=== PATIENT | male | born 1940 | race Caucasian/White ===

== ENCOUNTER 2018-10-28 10:40 | Day surgery (SDC) | payer MEDICARE, OTHER ==
[~2018-10-28] VITALS: Ht 182.9 cm; Wt 106.5 kg
[~2018-10-28 10:40] MED LIST: ASPI325 PO; ATEN100 PO; CALCITRATE200 MG PO; CARV25 PO; CENTRUM SILVER1 EAC2 PO; CLOP75 PO; CO Q10100 MG PO; CRESTOR; Coenzyme Q10400 MG PO; FAMO20 PO; HYDCHL25 PO; LISHYD2025 PO; Motion Sickness25 M1 PO; ROSU10TA PO; ROSUVASTATIN PO; UBID10; ZESTORETIC 20-121 EA PO
== END 2018-10-28 13:27 | disposition home or self-care (01) ==
LOC: ORSCSDS 10:40
PROVIDERS: Internal Medicine Gastroenterology
PROC: 0DBH8ZX Excision of Cecum, Via Natural or Artificial Opening Endoscopic, Diagnostic (ICD-10-PCS; principal; 2018-10-28 12:00)
PROC: 0DBK8ZX Excision of Ascending Colon, Via Natural or Artificial Opening Endoscopic, Diagnostic (ICD-10-PCS; principal; 2018-10-28 12:00)
PROC: 0DBL8ZX Excision of Transverse Colon, Via Natural or Artificial Opening Endoscopic, Diagnostic (ICD-10-PCS; principal; 2018-10-28 12:00)
PROC: 0DBN8ZX Excision of Sigmoid Colon, Via Natural or Artificial Opening Endoscopic, Diagnostic (ICD-10-PCS; principal; 2018-10-28 12:00)
DX: Z12.11 Encounter for screening for malignant neoplasm of colon (principal); D12.0 Benign neoplasm of cecum; D12.2 Benign neoplasm of ascending colon; D12.3 Benign neoplasm of transverse colon; D12.5 Benign neoplasm of sigmoid colon; K57.30 Diverticulosis of large intestine without perforation or abscess without bleeding; K64.8 Other hemorrhoids; Z86.010 Personal history of colon polyps; I10 Essential (primary) hypertension; I69.351 Hemiplegia and hemiparesis following cerebral infarction affecting right dominant side; I25.10 Atherosclerotic heart disease of native coronary artery without angina pectoris; Z79.01 Long term (current) use of anticoagulants; Z79.82 Long term (current) use of aspirin; Z79.899 Other long term (current) drug therapy; Z87.891 Personal history of nicotine dependence
CPT/HCPCS: 88305; J2704; J7120

== ENCOUNTER → 2019-04-15 | Outpatient (CLI) | payer MEDICARE, OTHER ==
[2019-04-15 14:23] LABS: Source, Urine Clean Catch
[2019-04-15 18:41] LABS: Bilirubin, Urine Neg (Neg); Blood, Urine 1+ (Neg); Glucose Qualitative, Urine Neg (Neg); Ketones, Urine Neg (Neg); Leukocyte Esterase, Urine Neg (Neg); Nitrite, Urine Neg (Neg); Protein, Urine 2+ (Neg); Specific Gravity, Urine 1.015 (1.003-1.022); Urobilinogen, Urine NORM (Normal); pH, Urine 6.5 (5.0-8.0)
[2019-04-15 18:58] LABS: Appearance, Urine Clear (Clear); Color, Urine Yellow (P-Yellow)
[2019-04-15 19:00] LABS: Bacteria Rare /hpf; Mucus Light (0-Heavy); Red Blood Cells, Urine Rare /hpf (0-2); Squamous Epithelial Cells Rare /hpf (Few); White Blood Cells, Urine Not Seen /hpf (0-5)
== END ==
LOC: LAB SHORT 14:22 → LAB 14:22 → LAB FUT 03-23 12:20
PROVIDERS: Physician Assistant
DX: R35.0 Frequency of micturition (principal)
CPT/HCPCS: 81001

== ENCOUNTER 2019-08-05 19:08 | Emergency (ER) | payer MEDICARE, OTHER ==
[~2019-08-05] VITALS: Ht 784.9 cm; Wt 107.5 kg
[2019-08-05] MEDS ORDERED: Crestor20 MG PO (19:25)
== END 2019-08-05 20:36 | disposition home or self-care (01) ==
LOC: ER 19:08
DX: R04.0 Epistaxis (principal); I10 Essential (primary) hypertension; I25.10 Atherosclerotic heart disease of native coronary artery without angina pectoris; Z79.82 Long term (current) use of aspirin; Z79.899 Other long term (current) drug therapy
CPT/HCPCS: 30903; 96374-59; 99283-25; J0360

== ENCOUNTER 2019-08-08 14:37 | Emergency (ER) | payer MEDICARE, OTHER ==
[~2019-08-08] VITALS: Ht 193 cm; Wt 104.3 kg
[~2019-08-08 14:37] MED LIST changes: +Crestor20 MG PO
== END 2019-08-08 14:53 | disposition home or self-care (01) ==
LOC: ER 14:37
DX: Z48.00 Encounter for change or removal of nonsurgical wound dressing (principal); I25.10 Atherosclerotic heart disease of native coronary artery without angina pectoris; Z79.82 Long term (current) use of aspirin; Z79.02 Long term (current) use of antithrombotics/antiplatelets; Z79.899 Other long term (current) drug therapy
CPT/HCPCS: 99282

== ENCOUNTER 2019-08-21 21:55 | Emergency (ER) | payer MEDICARE, OTHER ==
[~2019-08-21] VITALS: Ht 182.9 cm; Wt 107.5 kg
== END 2019-08-22 01:15 | disposition home or self-care (01) ==
LOC: ER 21:55
DX: R04.0 Epistaxis (principal); I25.2 Old myocardial infarction; I25.10 Atherosclerotic heart disease of native coronary artery without angina pectoris; I10 Essential (primary) hypertension; Z91.018 Allergy to other foods; Z88.5 Allergy status to narcotic agent; Z79.899 Other long term (current) drug therapy; Z79.82 Long term (current) use of aspirin; Z79.02 Long term (current) use of antithrombotics/antiplatelets; Z86.73 Personal history of transient ischemic attack (TIA), and cerebral infarction without residual deficits; Z95.5 Presence of coronary angioplasty implant and graft; Z87.891 Personal history of nicotine dependence
CPT/HCPCS: 30901; 99283-25

== ENCOUNTER 2019-08-25 10:13 | Emergency (ER) | payer MEDICARE, OTHER ==
[~2019-08-25] VITALS: Ht 182.9 cm; Wt 107.5 kg
== END 2019-08-25 10:42 | disposition home or self-care (01) ==
LOC: ER 10:13
DX: Z48.00 Encounter for change or removal of nonsurgical wound dressing (principal); J34.9 Unspecified disorder of nose and nasal sinuses; I25.2 Old myocardial infarction; I10 Essential (primary) hypertension; I25.10 Atherosclerotic heart disease of native coronary artery without angina pectoris; Z88.5 Allergy status to narcotic agent; Z91.018 Allergy to other foods; Z79.82 Long term (current) use of aspirin; Z79.899 Other long term (current) drug therapy; Z86.73 Personal history of transient ischemic attack (TIA), and cerebral infarction without residual deficits; Z87.891 Personal history of nicotine dependence
CPT/HCPCS: 99282

== ENCOUNTER 2020-04-18 06:15 | Day surgery (SDC) | payer MEDICARE, OTHER ==
[~2020-04-18] VITALS: Ht 182.9 cm; Wt 110.0 kg
[~2020-04-18 06:15] MED LIST changes: +CALCIUM 600 +1 EA11 PO; +COQ1050 MG PO; +IBUP800 PO; +MAGNESIUM TAURATE PO; +Prinivil10 MG PO
--- NOTE | 2020-04-18 06:52 | NUR ---
INTO [facility] VSS ADMISSION STARTED. History, Chart, Medications and Allergies reviewed before start of procedure.Lungs clear T/O to Auscultation. Patient confirms NPO status and agrees with scheduled surgery.
--- NOTE | 2020-04-18 10:45 | NUR ---
PT ARRIVED TO ROOM VIA OWN BED FROM PACU, A/O X 4, PLEASANT/COOPERATIVE, DENIES N/V, DENIES PAIN IN OPERATIVE HIP. POST OP VS COMMENCED AND STABLE. PT ABLE TO ROTATE CAMACHO FEET, GOOD CAPILLARY REFILL CAMACHO TOES. PT RECEIVED SECOND DOSE TXA IN PACU. PROVIDED PT WITH ORIENTATION TO ROOM, CALL LIGHT, NURSING STAFF. PROVIDED WITH PO FLUIDS.
--- NOTE | 2020-04-18 13:47 | NUR ---
OT in with pt
--- NOTE | 2020-04-18 18:08 | NUR ---
SHIFT SUMMARY: VSS, NO ACUTE CHANGES, PT WORKED WITH PT/OT THIS SHIFT, REMAINS A/O X 4, DENIES PAIN, DENIES N/V. PT HAS BEEN UP IN CHAIR SINCE OT EVAL, HAS AMBULATED IN HALLWAY, OPERATIVE SITE DRESSING REMAINS C/D/I. HAS VOIDED USING URINAL. PT CONCERNED THAT DIETARY IS AWARE OF CELERY ALLERGY. THIS RN CHECKED BOTH MEDICAL RECORD ALLERGY LIST (WHICH SHOWS CELERY ALLERGY) WELL SEND FOOD REQUEST TO DIETARY TO VERIFY THEY ARE AWARE OF ALLERGY. THIS RN NOTIFIED PT OF THESE MEASURE. PT'S DAUGHTER HAS PATRIA PT SNACKS FROM HOME, WHICH AR ESTICKERED AND IN THE REFRIGERATOR
[2020-04-19 04:28] LABS: BASOPHILS ABSOLUTE AUTO 0.01 K/mm3 (0.00-0.23); BASOPHILS PERCENT AUTO 0 % (0-2); EOSINOPHILS PERCENT AUTO 0 % (0-6); Hematocrit 29.2 % (37.0-53.0); Hemoglobin 9.6 g/dL (13.5-17.5); IMMATURE GRAN ABSOLUTE AUTO 0.05 K/mm3 (0.00-0.10); IMMATURE GRAN PERCENT AUTO 1 % (0-1); LYMPHOCYTES ABSOLUTE AUTO 0.69 K/mm3 (0.84-5.20); LYMPHOCYTES PERCENT AUTO 6 % (21-46); MONOCYTES ABSOLUTE AUTO 1.48 K/mm3 (0.16-1.47); MONOCYTES PERCENT AUTO 14 % (4-13); Mean Corpuscular HGB 29.3 pg (26.0-34.0); Mean Corpuscular HGB Conc 32.9 g/dL (31.5-36.5); Mean Corpuscular Volume 89 fL (80-100); Mean Platelet Volume 10.9 fL (9.1-12.4); NEUTROPHILS ABSOLUTE AUTO 8.65 K/mm3 (1.96-9.15); NEUTROPHILS PERCENT AUTO 80 % (41-73); Platelet Count 171 K/mm3 (150-400); RDW Coefficient Variation 13.5 % (11.7-14.2); RDW Standard Deviation 44.1 fL (35.1-46.3); Red Blood Cell Count 3.28 M/mm3 (4.30-5.90); White Blood Cell Count 10.88 K/mm3 (4.00-11.30)
[2020-04-19 04:45] LABS: Anion Gap 6 mmol/L (6-16); Blood Urea Nitrogen 22 mg/dL (8-24); Bun/Creatinine Ratio 21.6 (12.0-20.0); CO2, Blood 28 mmol/L (21-32); Calcium, Blood 7.8 mg/dL (8.5-10.1); Chloride, Blood 97 mmol/L (98-108); Creatinine, Blood 1.02 mg/dL (0.60-1.20); Glomerular Filtration Rate >60 (60-); Glucose, Blood 149 mg/dL (70-99); Magnesium, Blood 1.6 mg/dL (1.6-2.4); Potassium, Blood 4.2 mmol/L (3.5-5.5); Sodium, Blood 131 mmol/L (136-145)
--- NOTE | 2020-04-19 04:46 | NUR ---
SHIFT SUMMARY: POD 1 RIGHT TOTAL HIP REPAIR PATIENT IS ALERT AND ORIENTED X4 WHILE AWAKE. HE HAS TRISTON SLEEPING MAJORITY OF THE SHIFT BUT IS EASILY AROUSABLE. VITALS ARE WNL AND IS ON RA. PAIN IS CONTROLLED WITH IV DILAUDID, TORADOL, AND PO TYLENOL. PATIENT HAS BEEN VOIDING IN URNAL AND TOLERATING PO INTAKE. HE HAS AMBULATED TO THE BATHROOM WITH FWW AND GAIT BELT ON. HIS SURGICAL DRESSINGS X3 ON THE RIGHT HIP ARE C/D/I. HE HAS AN ALLERGY TO CELERY SO HE HAS RAMEN NOODLES IN THE ROOM WELL YOGURT IN THE FRIDGE. HE USES THE CALL LIGHT APPROPRIATELY. CALL LIGHT WITHIN REACH. THE PLAN IS TO POSSIBLY BE DISCHARGED TODAY.
--- NOTE | 2020-04-19 09:59 | NUR ---
CALLED PT'S PCP LOYDA KHAN'S OFFICE TO CONFIRM HCTZ DOSE, THEY SAID PT DOES NOT HAVE AN ACTIVE RX FOR THAT MEDICATION ANYMORE.
[2020-04-19] MEDS ORDERED: ROXICODONE5 MG PO (11:18)
[2020-04-19] MEDS ORDERED: AMOCLA875 PO (11:18)
[2020-04-19] MEDS ORDERED: PROM25 PO (11:20)
--- NOTE | 2020-04-19 11:57 | NUR ---
0830 pt declines all medications, states he will take them at home.
--- NOTE | 2020-04-19 11:59 | NUR ---
0915 per patient he no longer takes hctz as one of his medications contacted tonya naranjo who also states hctz is not on pts curent medications
== END 2020-04-19 11:50 | disposition home or self-care (01) ==
LOC: ORSCMMR 06:15 → SURS 10:39 → ORSCMMR 14:00 → SURS 04-19 11:50 → ORSCMMR 04-19 11:50
PROVIDERS: Orthopaedic Surgery
PROC: 8E0YXBZ Computer Assisted Procedure of Lower Extremity (ICD-10-PCS; principal; 2020-04-18 07:30)
PROC: 0SR90JA Replacement of Right Hip Joint with Synthetic Substitute, Uncemented, Open Approach (ICD-10-PCS; principal; 2020-04-18 07:30)
DX: M16.11 Unilateral primary osteoarthritis, right hip (principal); I10 Essential (primary) hypertension; I25.10 Atherosclerotic heart disease of native coronary artery without angina pectoris; E78.5 Hyperlipidemia, unspecified; I25.2 Old myocardial infarction; Z86.73 Personal history of transient ischemic attack (TIA), and cerebral infarction without residual deficits; Z87.891 Personal history of nicotine dependence; Z79.01 Long term (current) use of anticoagulants; Z79.899 Other long term (current) drug therapy; Z79.82 Long term (current) use of aspirin
CPT/HCPCS: 36415; 72170; 80048; 83735; 85025; 88300; 97110; 97110-CQ; 97116; 97116-CQ; 97162; 97166; 97530; 97530-CQ; 97535; A9270; C1713; C1776; J0171; J0690; J0735; J1100; J1170; J1885; J2250; J2370; J2405; J2704; J2795; J3010; J3370; J7120

== ENCOUNTER 2021-05-28 12:44 | Day surgery (SDC) | payer MEDICARE, OTHER ==
[~2021-05-28] VITALS: Ht 182.9 cm; Wt 100.1 kg
[~2021-05-28 12:44] MED LIST changes: +AMOCLA875 PO; +PROM25 PO; +ROXICODONE5 MG PO
--- NOTE | 2021-05-28 13:41 | NUR ---
History, Chart, Medications and Allergies reviewed before start of procedure. Patient confirms NPO status and agrees with scheduled surgery. Reports taking all of colon prep with clear results. Katarina arranged home with his grandson.
[2021-05-28] MEDS ORDERED: Lisinopril-Hct1 EAC4 PO (13:51)
--- NOTE | 2021-05-28 16:49 | NUR ---
05/28/21 1649 Maribeth Jernigan HISTORY,CHART, MEDICATIONS AND ALLERGIES REVIEWED BEFORE START OF PROCEDURE. PATIENT CONFIRMS NPO STATUS AND AGREES WITH SCHEDULED PROCEDURE. 3-LEAD EKG REVIEWED WITH PHYSICIAN PRIOR TO START OF PROCEDURE. MONITOR INTACT WITH CONTINUOUS PULSE OXIMETRY AND INTERMITTENT BP. SUPPLEMENTAL O2 TO BE TITRATED THROUGHOUT PROCEDURE TO MAINTAIN O2 SATURATION ABOVE 90%. PATIENT DETERMINED TO BE ASA APPROPRIATE FOR MODERATE SEDATION PRIOR TO START OF PROCEDURE BY .
--- NOTE | 2021-05-28 18:32 | NUR ---
Patient up to Ambulate independently. Gait steady. Discharge instructions reviewed with patient. Patient verbalizes understanding. Copy given to patient to take home. Discharged via wheelchair to private car for ride home.
== END 2021-05-28 22:42 | disposition home or self-care (01) ==
LOC: ORSCMMR 12:44 → ORSCSDS 12:45 → ORD 14:15 → ORSCMMR 14:15
PROVIDERS: Internal Medicine Gastroenterology
PROC: 0DJD8ZZ Inspection of Lower Intestinal Tract, Via Natural or Artificial Opening Endoscopic (ICD-10-PCS; principal; 2021-05-28 14:15)
DX: Z12.11 Encounter for screening for malignant neoplasm of colon (principal); K57.30 Diverticulosis of large intestine without perforation or abscess without bleeding; K64.8 Other hemorrhoids; Z86.010 Personal history of colon polyps; I10 Essential (primary) hypertension; Z86.73 Personal history of transient ischemic attack (TIA), and cerebral infarction without residual deficits; I25.2 Old myocardial infarction; I25.10 Atherosclerotic heart disease of native coronary artery without angina pectoris; E78.5 Hyperlipidemia, unspecified; R73.09 Other abnormal glucose; Z87.11 Personal history of peptic ulcer disease; Z79.01 Long term (current) use of anticoagulants; Z79.82 Long term (current) use of aspirin; Z79.899 Other long term (current) drug therapy
CPT/HCPCS: J2250; J3010; J7120

== ENCOUNTER 2021-09-13 20:37 | Observation (INO) | payer MEDICARE, OTHER ==
[~2021-09-13] VITALS: Ht 182.9 cm; Wt 98.0 kg
[~2021-09-13 20:37] MED LIST changes: +Lisinopril-Hct1 EAC4 PO
[2021-09-13 21:32] LABS: BASOPHILS ABSOLUTE AUTO 0.04 K/mm3 (0.00-0.23); BASOPHILS PERCENT AUTO 1 % (0-2); EOSINOPHILS ABSOLUTE AUTO 0.33 K/mm3 (0.00-0.68); EOSINOPHILS PERCENT AUTO 5 % (0-6); Hematocrit 35.8 % (37.0-53.0); Hemoglobin 11.9 g/dL (13.5-17.5); IMMATURE GRAN ABSOLUTE AUTO 0.02 K/mm3 (0.00-0.10); IMMATURE GRAN PERCENT AUTO 0 % (0-1); LYMPHOCYTES ABSOLUTE AUTO 1.14 K/mm3 (0.84-5.20); LYMPHOCYTES PERCENT AUTO 16 % (21-46); MONOCYTES ABSOLUTE AUTO 0.76 K/mm3 (0.16-1.47); MONOCYTES PERCENT AUTO 11 % (4-13); Mean Corpuscular HGB 31.1 pg (26.0-34.0); Mean Corpuscular HGB Conc 33.2 g/dL (31.5-36.5); Mean Corpuscular Volume 94 fL (80-100); Mean Platelet Volume 11.3 fL (9.1-12.4); NEUTROPHILS ABSOLUTE AUTO 4.79 K/mm3 (1.96-9.15); NEUTROPHILS PERCENT AUTO 68 % (41-73); Platelet Count 160 K/mm3 (150-400); RDW Coefficient Variation 13.6 % (11.7-14.2); RDW Standard Deviation 46.8 fL (35.1-46.3); Red Blood Cell Count 3.83 M/mm3 (4.30-5.90); White Blood Cell Count 7.08 K/mm3 (4.00-11.30)
[2021-09-13 21:49] LABS: Albumin, Blood 3.5 g/dL (3.4-5.0); Albumin/Globulin Ratio 1.1 (0.8-1.8); Bilirubin, Total 0.6 mg/dL (0.1-1.0); Bun/Creatinine Ratio 19.8 (12.0-20.0); Calcium, Blood 8.6 mg/dL (8.5-10.1); Creatinine, Blood 0.76 mg/dL (0.60-1.20); Globulin, Blood 3.1 g/dL (2.2-4.0); Potassium, Blood 3.8 mmol/L (3.5-5.5); Total Protein, Blood 6.6 g/dL (6.4-8.2)
[2021-09-14 04:25] LABS: BASOPHILS ABSOLUTE AUTO 0.05 K/mm3 (0.00-0.23); BASOPHILS PERCENT AUTO 1 % (0-2); EOSINOPHILS ABSOLUTE AUTO 0.33 K/mm3 (0.00-0.68); EOSINOPHILS PERCENT AUTO 5 % (0-6); Hematocrit 33.9 % (37.0-53.0); Hemoglobin 11.5 g/dL (13.5-17.5); IMMATURE GRAN ABSOLUTE AUTO 0.01 K/mm3 (0.00-0.10); IMMATURE GRAN PERCENT AUTO 0 % (0-1); LYMPHOCYTES ABSOLUTE AUTO 1.64 K/mm3 (0.84-5.20); LYMPHOCYTES PERCENT AUTO 27 % (21-46); MONOCYTES ABSOLUTE AUTO 0.78 K/mm3 (0.16-1.47); MONOCYTES PERCENT AUTO 13 % (4-13); Mean Corpuscular HGB 31.3 pg (26.0-34.0); Mean Corpuscular HGB Conc 33.9 g/dL (31.5-36.5); Mean Corpuscular Volume 92 fL (80-100); Mean Platelet Volume 11.2 fL (9.1-12.4); NEUTROPHILS ABSOLUTE AUTO 3.35 K/mm3 (1.96-9.15); NEUTROPHILS PERCENT AUTO 54 % (41-73); Platelet Count 141 K/mm3 (150-400); RDW Coefficient Variation 13.6 % (11.7-14.2); RDW Standard Deviation 46.8 fL (35.1-46.3); Red Blood Cell Count 3.67 M/mm3 (4.30-5.90); White Blood Cell Count 6.16 K/mm3 (4.00-11.30)
[2021-09-14 04:57] LABS: Albumin, Blood 3.3 g/dL (3.4-5.0); Albumin/Globulin Ratio 1.2 (0.8-1.8); Bilirubin, Total 0.7 mg/dL (0.1-1.0); Bun/Creatinine Ratio 19.4 (12.0-20.0); Calcium, Blood 8.8 mg/dL (8.5-10.1); Creatinine, Blood 0.72 mg/dL (0.60-1.20); Globulin, Blood 2.8 g/dL (2.2-4.0); Potassium, Blood 3.6 mmol/L (3.5-5.5); Total Protein, Blood 6.1 g/dL (6.4-8.2)
[2021-09-14] MEDS ORDERED: Aspir 8181 MG PO (06:36)
--- NOTE | 2021-09-14 08:43 | NUR ---
NEW ADMISSION FROM ER. A/OX4 VERY PLEASANT. STEADY GAIT HOWEVER REPORTS BEING DIZZY WHEN HE STANDS UP. EDUCATED PT TO CALL FOR ASSISTANCE WHEN OOB. PT USED CALL LIGHT APPROPRIATELY. REPORTED 1 BM WITH BRIGHT RED BLOOD IN STOOL WHILE ON FLOOR.
[2021-09-14 10:15] LABS: Hematocrit 33.5 % (37.0-53.0); Hemoglobin 11.1 g/dL (13.5-17.5)
[2021-09-14 15:58] LABS: Hematocrit 36.1 % (37.0-53.0); Hemoglobin 12.1 g/dL (13.5-17.5)
--- NOTE | 2021-09-14 19:19 | NUR ---
SHIFT SUMMARY PATIENT A&O X4. GETS UP TO BATHROOM INDEPENDENTLY. 1 BM WITH BRIGHT RED BLOOD. ON CLEAR LIQUID DIET WITH PLANS FOR BOWEL PREP AND POSSIBLE SCOPE TOMORROW. VSS. REPORT GIVEN TO ONCOMING RN.
[2021-09-14 22:19] LABS: Hematocrit 36.7 % (37.0-53.0); Hemoglobin 12.4 g/dL (13.5-17.5)
[2021-09-15 05:15] LABS: BASOPHILS ABSOLUTE AUTO 0.05 K/mm3 (0.00-0.23); BASOPHILS PERCENT AUTO 1 % (0-2); EOSINOPHILS ABSOLUTE AUTO 0.35 K/mm3 (0.00-0.68); EOSINOPHILS PERCENT AUTO 6 % (0-6); Hematocrit 32.1 % (37.0-53.0); Hemoglobin 10.9 g/dL (13.5-17.5); IMMATURE GRAN ABSOLUTE AUTO 0.02 K/mm3 (0.00-0.10); IMMATURE GRAN PERCENT AUTO 0 % (0-1); LYMPHOCYTES PERCENT AUTO 24 % (21-46); MONOCYTES ABSOLUTE AUTO 0.61 K/mm3 (0.16-1.47); MONOCYTES PERCENT AUTO 10 % (4-13); Mean Corpuscular HGB 31.4 pg (26.0-34.0); Mean Corpuscular Volume 93 fL (80-100); Mean Platelet Volume 11.3 fL (9.1-12.4); NEUTROPHILS ABSOLUTE AUTO 3.74 K/mm3 (1.96-9.15); NEUTROPHILS PERCENT AUTO 60 % (41-73); Platelet Count 131 K/mm3 (150-400); RDW Coefficient Variation 13.4 % (11.7-14.2); Red Blood Cell Count 3.47 M/mm3 (4.30-5.90); White Blood Cell Count 6.27 K/mm3 (4.00-11.30)
[2021-09-15 05:54] LABS: Bun/Creatinine Ratio 11.7 (12.0-20.0); Calcium, Blood 8.5 mg/dL (8.5-10.1); Creatinine, Blood 0.77 mg/dL (0.60-1.20); Potassium, Blood 3.6 mmol/L (3.5-5.5)
--- NOTE | 2021-09-15 07:35 | NUR ---
NOW NEW CONCERNS OVERNIGHT. PT TOOK FIRST PART OF BOWEL PREP. REPORTED LAST BM NOTED TO BE PINK TINGED. HGB THIS MORNING 10.9. PT INDEPENDENT IN ROOM.
--- NOTE | 2021-09-15 10:09 | NUR ---
PATIENT HAD 5 BM SINCE BOWEL PREP THIS AM. BM ARE DARK YELLOW IN COLOR WITH VERY LITTLE PIECES OF PARTICLES AND GETTING CLEARER EACH BM. NO SIGNS OF BLOOD.
[2021-09-15] MEDS ORDERED: OMEP20ER PO (15:05)
[2021-09-15] MEDS ORDERED: PANT40 PO (15:30)
--- NOTE | 2021-09-15 16:52 | NUR ---
DISCHARGE SUMMARY PATIENT DISCHARGED HOME. DISCHARGE PAPERWORK REVIEWED WITH PATIENT AND ALL QUESTIONS ANSWERED. PRESCRIPTION FAXED TO PREFERRED PHARMACY. IV AND TELE D/C'D. PATIENT AND ALL BELONGINGS TAKEN VIA WHEELCHAIR TO 2ND FLOOR EXIT WHERE FAMILY PICKED PATIENT UP. AFTER DISCHARGING PATIENT DR SHAMIKA MCCALL. NEW MEDICATION FAXED TO PREFERRED PHARMACY AND PATIENT CALLED AND NOTIFIED OF CHANGE.
== END 2021-09-15 15:26 | disposition home or self-care (01) ==
LOC: ER 20:37 → MEDS 20:38
PROVIDERS: Emergency Medicine; Internal Medicine; ADMIT Internal Medicine
DX: K62.5 Hemorrhage of anus and rectum (principal); I25.2 Old myocardial infarction; I25.10 Atherosclerotic heart disease of native coronary artery without angina pectoris; I10 Essential (primary) hypertension; Z95.5 Presence of coronary angioplasty implant and graft; Z87.891 Personal history of nicotine dependence; Z88.5 Allergy status to narcotic agent; Z91.018 Allergy to other foods; E78.5 Hyperlipidemia, unspecified; D62 Acute posthemorrhagic anemia; Z86.73 Personal history of transient ischemic attack (TIA), and cerebral infarction without residual deficits; Z79.82 Long term (current) use of aspirin; Z79.01 Long term (current) use of anticoagulants; I45.2 Bifascicular block
CPT/HCPCS: 36415; 80048; 80053; 83880; 85014; 85018; 85025; 86850; 86900; 86901; 93005; 93010; 96361; 96374; 96376; 99284-25; A9270; C9113; G0378; J7030

== ENCOUNTER → 2022-09-03 | Outpatient (CLI) | payer MEDICARE, OTHER ==
[~2022-09-03] MED LIST changes: +Aspir 8181 MG PO; +OMEP20ER PO; +PANT40 PO
== END | disposition home or self-care (01) ==
LOC: LAB SHORT 09:50 → PLD 09:50
DX: D48.5 Neoplasm of uncertain behavior of skin (principal); L72.8 Other follicular cysts of the skin and subcutaneous tissue
CPT/HCPCS: 88304

== ENCOUNTER → 2022-09-10 | Outpatient (CLI) | payer MEDICARE, OTHER | END | disposition home or self-care (01) | LOC: LAB 14:00 → LAB SHORT 14:00 | DX: L03.319 Cellulitis of trunk, unspecified (principal) | CPT/HCPCS: 87070; 87077; 87147; 87186; 87205 ==

== ENCOUNTER → 2022-09-17 | Outpatient (CLI) | payer MEDICARE, OTHER | END | disposition home or self-care (01) | LOC: PLD 14:49 → LAB SHORT 14:49 | DX: L72.0 Epidermal cyst (principal) | CPT/HCPCS: 88304 ==

== ENCOUNTER 2024-12-12 09:06 | Day surgery (SDC) | payer MEDICARE, OTHER ==
[~2024-12-12] VITALS: Ht 182.9 cm; Wt 100.2 kg
[2024-12-12] VITALS (14 sets, daily range): BP systolic 106–180; BP diastolic 61–147
[~2024-12-12 09:06] MED LIST changes: +CALCIUM CITRAT200 MG PO; +LISI20 PO; +MAGNESIUM OXID500 MG PO
[2024-12-12] MEDS ORDERED: NS 250 ML IV ONE (09:40)
[2024-12-12] MEDS ORDERED: Verapamil HCL 2.5 MG/ML 2ML Injection ONE (09:40)
[2024-12-12] MEDS ORDERED: Heparin Sodium 1000 Units/ML 10ML MDV ONE ×2 (09:40→10:40)
[2024-12-12] MEDS ORDERED: NS 1,000 ML IV ONE ×2 (09:40→10:41)
[2024-12-12] MEDS ORDERED: Nitroglycerin 2 MG/20 ML BTL ONE (09:40)
[2024-12-12] MEDS ORDERED: Midazolam HCl 1MG / ML 2ML Vial ONE (10:44)
[2024-12-12] MEDS ORDERED: FentaNYL Citrate 50 MCG/ML 2 ML Injection ONE (10:44)
--- NOTE | 2024-12-12 12:00 | NUR ---
PT BACK TO RECOVERY ROOM FROM PROCEDURE. PT SITTING UP IN RECLINER. VSS. TR BAND TO R RADIAL SITE AND DRESSING TO R AC IS CLEAN DRY AND INTACT.
--- NOTE | 2024-12-12 12:13 | NUR ---
DR JEAN IN TO SEE AND UPDATE PT. PT SITTING UP DRINKING COFFEE.
--- NOTE | 2024-12-12 13:54 | NUR ---
BEGAN DEFLATING TR BAND. NO BLEEDING OR HEMATOMA NOTED.
--- NOTE | 2024-12-12 14:15 | NUR ---
TR BAND FULLY DEFLATED. PT VERBALIZE UNDERSTANDING OF D/C INSTRUCTIONS.
--- NOTE | 2024-12-12 15:39 | NUR ---
PT DRESSED AND UP TO BR WITH SBA. IV D/C, CATHETER INTACT. TR BAND REMOVED AND CLOTH DOT DRESSING PLACED. DAUGHTER UPDATED ON PT STATUS AND WILL BE HERE AT 1630 TO DENTAL TECHNOLOGY ADVISOR PT. PT SITTING UP IN CHAIR, EATING SNACKS. DENIES NEEDS AT THIS TIME.
--- NOTE | 2024-12-12 16:37 | NUR ---
PT WHEELED OUT OF DEPT TO DAUGHTER CAR WITH D/C INSTRUCTIONS IN HAND. SLING WAS PLACED PRIOR TO D/C TO HELP REMIND PT NOT TO USE HIS R ARM.
== END 2024-12-12 16:30 | disposition home or self-care (01) ==
LOC: MHTC 09:06
DX: I35.0 Nonrheumatic aortic (valve) stenosis (principal); I25.2 Old myocardial infarction; I25.10 Atherosclerotic heart disease of native coronary artery without angina pectoris; I10 Essential (primary) hypertension; E78.5 Hyperlipidemia, unspecified; Z95.5 Presence of coronary angioplasty implant and graft; Z88.5 Allergy status to narcotic agent
CPT/HCPCS: 76937; 93456; C1769; C1887; C1894; J1644; J2250; J3010; J7030; J7050; Q9967